=== PATIENT | female | born 1980 | race African-American/Black ===

== ENCOUNTER 2017-09-23 18:35 | Emergency (ER) | payer OTHER ==
[~2017-09-23] VITALS: Ht 170.2 cm; Wt 122.5 kg
[2017-09-23 18:41] VITALS: BP 138/95; PULSE 103; RESP 18; TEMP 98.4; O2SAT 99
[2017-09-23] MEDS ORDERED: LOSA25TA PO (19:26)
[2017-09-23] MEDS ORDERED: METH500T PO (19:26)
--- NOTE | 2017-09-23 19:26 | PD ---
HPI Chief Complaint: Pain: Acute or Chronic Time Seen by Provider: 19:08 Travel History International Travel<30 days: No Contact w/Intl Traveler<30days: No Traveled to known affect area: No History of Present Illness HPI 36-year-old female presents to the emergency department for evaluation of left calf pain and swelling that started on Sunday, 4 days ago. Patient was originally seen at [facility] and was transferred here for ultrasound to rule out DVT. Patient denies any history of blood clots. She says she is not sexually active and is not on control. She denies being a smoker. 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 She denies any headache, fevers, chills. No chest pain or shortness of breath. No abdominal pain. Nausea, vomiting, diarrhea. Patient currently rates the pain 6/10 in the left calf, worse with dorsiflexion and plantar flexion of the left foot, alleviating factors keeping the leg still. She denies any redness or warmth. She states that the swelling will go down if she elevates the leg. Moderate severity. PFSH Past Medical History Anxiety: Yes Depression: Yes Hypertension: Yes ?: Not : 3 Para: 3 Past Surgical History Section: Yes (3) Social History Alcohol Use: Yes (SOCIAL) Tobacco Use: No Substance Use: No Allergies-Medications (Allergen,Severity, Reaction): Coded Allergies: No Known Allergies (Unverified , 09/23/17) Reported Meds & Prescriptions Reported Meds & Active Scripts Active Reported Methyldopa 500 Mg Tab 500 Mg PO TID Losartan (Losartan Potassium) 25 Mg Tab Unknown Dose PO DAILY Review of Systems Except as stated in HPI: all other systems reviewed are Neg Physical Exam Narrative GENERAL: Well-nourished, well-developed female patient, ambulatory. Afebrile. SKIN: Focused skin assessment warm/dry. HEAD: Normocephalic. Atraumatic. EYES: No scleral icterus. No injection or drainage. NECK: Supple, trachea midline. No JVD or lymphadenopathy. CARDIOVASCULAR: Regular rate and rhythm without murmurs, gallops, or rubs. Left pedal pulse is 2+. RESPIRATORY: Breath sounds equal bilaterally. No accessory muscle use. Lung sounds are clear to auscultation. GASTROINTESTINAL: Abdomen soft, non-tender, nondistended. MUSCULOSKELETAL: No cyanosis, or edema. Patient has tenderness over left posterior calf with palpation. Positive Homans sign. BACK: Nontender without obvious deformity. No CVA tenderness. Data Data Last Documented VS Vital Signs Date Time Temp Pulse Resp B/P (MAP) Pulse Ox O2 Delivery O2 Flow Rate FiO2 09/23/17 18:41 98.4 103 18 138/95 (109) 99 Orders Orders Us Leg Venous Doppler (09/23/17 ) Ibuprofen (Motrin) (09/23/17 21:30) Methocarbamol (Robaxin) (09/23/17 21:30) [facility] Medical Decision Making Medical Screen Exam Complete: Yes Emergency Medical Condition: Yes Medical Record Reviewed: Yes Interpretation(s) US - CONCLUSION: Negative study. No venous thrombosis of the left lower extremity. Differential Diagnosis DVT versus muscle strain versus muscle spasm Narrative Course 36-year-old female presents to the emergency department for evaluation of left calf pain that started on Sunday. Venous Doppler ultrasound left lower extremity is ordered and pending. US is negative for DVT. Patient is given ibuprofen 800 mg p.o., Robaxin 500 mg p.o. She will be discharged with a prescription for ibuprofen and Robaxin. She is encouraged to use heating pad on low and follow-up with her primary care physician. Diagnosis Primary Impression: Muscle strain of left lower leg Qualified Codes: S86.912A - Strain of unspecified muscle(s) and tendon(s) at lower leg level, left leg, initial encounter Referrals: Primary Care Physician call for appointment Patient Instructions: General Instructions, Muscle Strain (ED) Departure Forms: Tests/Procedures, Work Release Enter return to work date: Sep 25, 2017 Additional Instructions: Take ibuprofen as directed as needed with food for pain. Take Robaxin as directed as needed. Heating pad on low for 20 minutes 4-5 times daily. Follow-up with a primary care physician. Return to the emergency department for any acute worsening of symptoms. Med/Other Pt SpecificInfo: Prescription(s) given Scripts Methocarbamol (Robaxin) 750 Mg Tab 750 MG PO TID Y for MUSCLE SPASM, #21 TAB 0 Refills Prov: Bethany Stroud 09/23/17 Ibuprofen (Ibuprofen) 800 Mg Tab 800 MG PO TID Y for PAIN SCALE 1 TO 10, #21 TAB 0 Refills Prov: Bethany Stroud 09/23/17 Disposition: 01 DISCHARGE HOME Condition: Stable Bethany Stroud Sep 23, 2017 19:26
--- NOTE | 2017-09-23 21:14 | RADRPT ---
EXAM DATE/TIME: 09/23/2017 20:34 [place] COMPARISON: No previous studies available for comparison. INDICATIONS : Left calf pain and swelling. MEDICAL HISTORY : Hypertension. SURGICAL HISTORY : section. ENCOUNTER: Initial ACUITY: 3 days PAIN SCORE: 3/10 LOCATION: Left leg. TECHNIQUE: Venous ultrasound of the leg was performed from the inguinal ligament to the proximal calf. Real-emi e, color Doppler and spectral tracing, compression and augmentation techniques were used. FINDINGS: There is normal compressibility of the deep venous system from the inguinal region to the proximal ca lf. No echogenic clot is seen in the lumen of the common femoral, femoral, popliteal, and posterior tibial veins. There is a normal response of the venous system to proximal and distal augmentation an d respiration. CONCLUSION: Negative study. No venous thrombosis of the left lower extremity. Guicho Fragoso MD on September 23, 2017 at 21:11 Board Certified Radiologist. This report was verified electronically.
[2017-09-23] MEDS ORDERED: ROBA750T PO (21:25)
[2017-09-23] MEDS ORDERED: IBUP1TAB7 PO (21:25)
[2017-09-23 21:28] VITALS: BP 112/56
[2017-09-23] MEDS ORDERED: METHOCARBAMOL 500 MG TAB PO ONE (21:30)
[2017-09-23] MEDS ORDERED: IBUPROFEN 800 MG TAB PO ONE (21:30)
== END 2017-09-23 21:38 | disposition home or self-care (01) ==
LOC: NEPC 18:35
DX: S86.912A Strain of unspecified muscle(s) and tendon(s) at lower leg level, left leg, initial encounter (principal); I10 Essential (primary) hypertension; F41.8 Other specified anxiety disorders
CPT/HCPCS: 93971; 99281; 99284